=== PATIENT | male | born 1945 ===

== ENCOUNTER 2023-11-27 09:25 | Outpatient (RCR) | payer MEDICARE, MEDICAID, SELFPAY | END 2023-11-27 23:59 | disposition home or self-care (01) | LOC: RPT 09:25 | PROVIDERS: ATTENDING PHYSICIAN Radiology Radiation Oncology | DX: I89.0 Lymphedema, not elsewhere classified (principal); C01 Malignant neoplasm of base of tongue; Z73.6 Limitation of activities due to disability | CPT/HCPCS: 97110; 97162; 97535 ==

== ENCOUNTER 2023-12-24 13:31 | Outpatient (RCR) | payer MEDICARE, MEDICAID, SELFPAY | END 2023-12-24 23:59 | disposition home or self-care (01) | LOC: RPT 13:31 | PROVIDERS: ATTENDING PHYSICIAN Radiology Radiation Oncology | DX: C01 Malignant neoplasm of base of tongue (principal); I89.0 Lymphedema, not elsewhere classified; Z73.6 Limitation of activities due to disability; F03.90 Unspecified dementia, unspecified severity, without behavioral disturbance, psychotic disturbance, mood disturbance, and anxiety | CPT/HCPCS: 97110; 97140 ==

== ENCOUNTER 2024-01-14 11:27 | Outpatient (RCR) | payer MEDICARE, MEDICAID, SELFPAY | END 2024-01-14 23:59 | disposition home or self-care (01) | LOC: RPT 11:27 | PROVIDERS: ATTENDING PHYSICIAN Radiology Radiation Oncology | DX: I89.0 Lymphedema, not elsewhere classified (principal); C01 Malignant neoplasm of base of tongue; Z73.6 Limitation of activities due to disability | CPT/HCPCS: 97110; 97140 ==

== ENCOUNTER 2024-01-29 10:44 | Outpatient (RCR) | payer MEDICARE, MEDICAID, SELFPAY | END 2024-01-29 13:47 | disposition home or self-care (01) | LOC: RPT 10:44 | PROVIDERS: ATTENDING PHYSICIAN Radiology Radiation Oncology | DX: C01 Malignant neoplasm of base of tongue (principal); I89.0 Lymphedema, not elsewhere classified; Z73.6 Limitation of activities due to disability | CPT/HCPCS: 97140; 97535 ==

== ENCOUNTER → 2024-04-06 17:30 | Outpatient (REF) | payer MEDICARE, MEDICAID, SELFPAY ==
[2024-04-09 04:28] LABS: HPV, High Risk Not Detected; HPV, High Risk Source Anal
== END ==
LOC: REG 17:30
PROVIDERS: ATTENDING PHYSICIAN Surgery
DX: Z86.19 Personal history of other infectious and parasitic diseases (principal)
CPT/HCPCS: 87624; 88112

== ENCOUNTER → 2024-06-22 10:40 | Outpatient (REF) | payer MEDICARE, MEDICAID, SELFPAY | LOC: MRI 3T 10:40 | PROVIDERS: ATTENDING PHYSICIAN Radiology Radiation Oncology; FAMILY PHYSICIAN Internal Medicine | DX: N40.2 Nodular prostate without lower urinary tract symptoms (principal) | CPT/HCPCS: 72197; A9575 ==

== ENCOUNTER → 2024-07-24 11:17 | Outpatient (REF) | payer MEDICARE, MEDICAID, SELFPAY | LOC: CLAB 11:17 | PROVIDERS: ATTENDING PHYSICIAN Surgery | DX: D49.59 Neoplasm of unspecified behavior of other genitourinary organ (principal) | CPT/HCPCS: 88305 ==

== ENCOUNTER 2024-09-21 22:03 | Inpatient (IN) | payer MEDICARE, OTHER, SELFPAY ==
--- NOTE | 2024-09-21 15:02 | ED.GENMED ---
ED Provider Triage
<Sahra Woodruff SPEECH TEACHER - Last Filed: 09/28/24 18:28>
-
Patient seen by provider in Triage?: Seen in Triage
Attestation: A medical screening examination has been initiated by a qualified medical provider. Based on the assessment performed at this time, it has been determined that an emergent medical condition may exist and the patient has been informed
that further medical evaluation and possible additional diagnostic testing may be needed.
HPI: 79 yo male here with daughter who states pt normally walks, sometimes with walker, when she saw him today for first time in two weeks, she found out from [place] that pt has been needing wheelchair transport past 2 weeks, very lethargic, out of it,
says he still has a sore throat.
2 weeks ago he had bowel clean-out for prostate CA, [facility] radiation doing trial run prior to starting radiation. Last week had covid shot, sore throat afterward, 3 days later appt with [facility] (hx head and neck CA for routing f/u). Cancelled appt. as
pt didn't feel well
Had first Lupron shot one month ago, due again today w Dr. Mehta but they want to hold off until evaluated
When pt asked if he knows why he's here states 'not really.' Pt states 'no' when asked if he has any pain, CP, SOB, abd.pain, extremity pain
GENERAL: Alert , in no apparent distress
EYE: No visual abnormalities.
NECK: Trachea midline
ENT: No visible abnormalities. Pharynx normal.
LUNGS: No acute respiratory distress
NEUROLOGICAL: Alert and oriented to name, '[facility]' states it's 'February,' next holiday is '.'
SKIN: Skin intact. No visible changes.
MUSCULOSKELETAL: Feet swollen
PSYCH: Normal and appropriate interaction.
This is a medical evaluation conducted in person to initiate diagnostic evaluation and provide initial therapeutics. Please see further documentation by the treating clinician.
Do you know why your here? Not completely.
History of Present Illness
<Sahra Woodruff, SPEECH TEACHER - Last Filed: 09/28/24 18:28>
General
Chief Complaint: Change in Mental Status
Time Seen by Provider: 09/21/24 16:21
<Eduarda Posey DO - Last Filed: 09/21/24 18:46>
History of Present Illness
History of Present Illness:
79-year-old male with prior history of head and neck cancer remission, prostate cancer, bipolar disorder, diabetes presenting to the emergency department for generalized fatigue and weakness. Patient's daughter has not seen her for 2 weeks. She
went to go visit her today at the nursing facility, patient seemed very fatigued and sleepy. Notes that the correction has been wheeling him to meals, which is unlike him. She was supposed to get him to get his Lupron shot for prostate cancer
today, however in discussion with the oncologist, advised not to given his present state. No known fevers. Patient denying any chest pain or difficulty breathing. He does note some sore throat and a mild cough. Patient had his COVID-vaccine
about a week ago and reports that he has been feeling unwell since then. Daughter notes overall poor appetite. No known sick contacts. No additional history obtained at this time.
Phy Exam
<Eduarda Posey DO - Last Filed: 09/21/24 18:46>
Physical Exam
Physical Exam:
General: Somnolent however responsive, pale
HEENT: protecting airway, no oropharyngeal erythema, no exudates
Neck: appears supple
CV: Normal heart rate, regular rhythm
Resp: No accessory muscle use, no increased work of breathing, lungs clear to auscultation bilaterally
Abd: Soft and non-distended, no tenderness to palpation
Extremities: No deformities, no erythema. Generalized swelling to the distal upper and lower extremities
Neuro: alert, no focal neurologic deficit
: deferred
Rectal: deferred
Psych: Normal affect
Skin: Intact
Course
<Sahra Woodruff, SPEECH TEACHER - Last Filed: 09/28/24 18:28>
Orders/Labs/Results
Orders:
Orders
09/21/24 15:17
Complete Blood Count/With Diff Urgent
Comprehensive Metabolic Panel Urgent
Free T4 Urgent
NT-proBNP Urgent
Comment: ADD ON
Serum Osmolality Urgent
Comment: ADD ON
TSH Reflex To Free T4 Urgent
Comment: ADD ON
09/21/24 16:34
0.9% Sodium Chloride 1000 ml [Nss] 1,000 ml IV BOLUS
09/21/24 16:35
CR Chest - 2 Views Urgent
Comment:
Reason For Exam: fatigue
09/21/24 16:51
COVID-19 Antigen Urgent
Source: Nasal Swab
Lactic Acid Q4H
Comment: CANCEL 2nd LACTIC ACID IF 1st LACTIC ACID IS LESS THAN 2
Osmolality, Random Urine Urgent
Date Specimen was Collected: 09/21/24
Time Specimen was Collected: 15:20
Comment: ADD ON
Urinalysis Reflex To Culture Urgent
Date Specimen was Collected: 09/21/24
Time Specimen was Collected: 15:20
Urine Microscopic Reflex Cult Urgent
Urine Sodium Urgent
Date Specimen was Collected: 09/21/24
Time Specimen was Collected: 15:20
Comment: ADD ON
Influenza A+B Rapid Molecular Urgent
MANOJ Source: Nasal Swab
Specimen Description:
Rapid Strep Group A Urgent
MANOJ Source: Throat/Pharynx
Specimen Description:
Date Specimen was Collected: 09/21/24
Time Specimen was Collected: 16:47
Urine Culture Urgent
MANOJ Source: U
Specimen Description:
Date Specimen was Collected: 09/21/24
Time Specimen was Collected: 15:20
09/21/24 20:12
Add On- LAB Urgent
Tests Added?: serum osmo, TSH w/Reflex
09/21/24 20:44
Peripheral Venous Lwr Ext Bilat US [US Periph Venous LOWER Ext Jacob] Urgent
Comment:
Reason For Exam: lower extremity edema
09/21/24 20:51
Add On- LAB Urgent
Tests Added?: urine osmolality, urine sodium
09/21/24 20:52
Add On- LAB Urgent
Tests Added?: BNP
09/21/24 20:54
3% Sodium Chloride 250 ml [Sodium Chloride 3%] 250 ml IV ONCE
09/21/24 21:03
Admit/Transfer Patient As Directed
Co-Sign Provider:
Level of Care: Inpatient admission
Assign to:: Telemetry
Physician / Group: Ethel
Diagnosis: Symptomatic Hyponatremia
Reason for Telemetry: Arrhythmia
Date to Stop Telemetry: 09/24/24
Time to Stop Telemetry: 11:00
Reason for Hospitalization: IVFs
Expected length of stay greater than two midnights?: Yes
ELOS- Estimated Length of Stay in days: 3
I certify the patient meets the requirements for IP care: Yes
09/21/24 21:04
PRN Pain Medication Management As Directed
May give lesser potent ordered pain med per pt: Yes
preference::
Protocol:: Medication orders for pain may be administered in a
manner that supports deferring to patient preference
when the pt is:
- Requesting an ordered lesser potent pain medication.
Least to most potent pain medications are defined
as: acetaminophen < NSAID < tramadol < opioids
(morphine, oxycodone, hydromorphone).
- Requesting a lesser dose of the same medication IF
ORDERED.
- Requesting a less intrusive route of administration
if both routes are prescribed by the provider (PO <
IV).
09/21/24 21:05
Code Status As Directed
Resuscitation Status: Do not resuscitate
Reached after discussion with pt or family/Healthcare POA: Yes
09/21/24 21:06
DNR Bracelet Application ONCE
09/21/24 22:00
Flush (0.9% Sodium Chloride) [Flush (Nss)] See Dose Instructions IV PER PROTOCOL
09/22/24 00:48
Acetaminophen [Tylenol] 650 mg PO Q6HPRN PRN
Dextrose 50%-Water [Dextrose 50% Syringe] 12.5 grams IV [id number] PRN
Glucagon [GlucaGen] 1 mg IM PRN PRN
HydrALAZINE [Apresoline] 5 mg IV Q6HPRN PRN
09/22/24 00:48
Echo 2D MMode Color/Doppler Routine
Reason for Study: Lower extremity edema
NEPHROLOGY CONSULT Routine
Consulting Provider: Rod Espinal V.
Was physician already notified: Yes
Activity As Directed
Activity Level: Out of Bed- Chair
Bedside Glucose Monitoring As Directed
Frequency: AC&HS
Additional Instructions:: Change to q6h if pt on TPN, tube feeding or not eating
I&O [Intake/ Output] As Directed
Frequency: q12h
Vital Signs As Directed
Frequency: Per unit guidelines
Weight As Directed
Frequency: Daily
Ot Eval And Treat Routine
Pt Eval And Treat Routine
Activity Level: Out of Bed-Early Mobility
DX Deep Vein Thrombosis Video Routine
09/22/24 04:43
Basic Metabolic Panel IN AM
Complete Blood Count/No Diff IN AM
Cortisol, Random IN AM
Glycohemoglobin (HgbA1c) IN AM
Magnesium IN AM
09/22/24 Breakfast
Sodium, 2 Gram
At Your Request: Non-Participating
Fluid Restriction: 1440 mL/day (48 oz)
Low Sodium: 2000 trevor/ 17 CHO Diabetic
Potassium, 2 Gram
09/22/24 07:30
Insulin Aspart Corrective Mod [Novolog Flexpen-Moderate Resistance] See Protocol SC AC
09/22/24 08:00
Docusate Sodium [Colace] 100 mg PO BID
Duloxetine Delayed Release [Cymbalta Delayed Release] 20 mg PO DAILY
Duloxetine Delayed Release [Cymbalta Delayed Release] 60 mg PO DAILY
Memantine HCl [Namenda] 5 mg PO BID
Tamsulosin [Flomax] 0.4 mg PO DAILY
cariprazine [Vraylar] See Dose Instructions PO DAILY
09/22/24 18:00
Enoxaparin Sodium [Lovenox] 40 mg SC QPM
09/24/24 11:00
DC Protocol for Telemetry ONCE
Abnormal Lab Results
09/21/24 09/21/24
15:17 16:51
WBC 12.2 H 10^3/uL
(4.8-10.8)
Hct 38.9 L %
(39.0-52.0)
RDW 14.7 H %
(11.5-14.5)
Plt Count 526 H 10^3/uL
(130-400)
Abs Immat Gran (auto) 0.2 H 10^3/uL
(0-0.05)
Absolute Neuts (auto) 9.7 H 10^3/uL
(1.4-6.5)
Absolute Lymphs (auto) 0.8 L 10^3/uL
(1.2-3.4)
Absolute Eos (auto) 1.1 H 10^3/uL
(0-0.7)
Immature Gran % 1.8 H %
(0-0.5)
Neutrophils % 79.8 H %
(42.2-75.2)
Lymphocytes % 6.3 L %
(20.5-51.1)
Eosinophils % 9.3 H %
(0-6)
Sodium 123 L mmol/L
(135-145)
Potassium 5.3 H mmol/L
(3.5-5.1)
Chloride 96 L mmol/L
(98-107)
Carbon Dioxide 18 L mmol/L
(22-30)
BUN 41 H mg/dl
(9-20)
Glucose 181 H mg/dl
(70-99)
Serum Osmolality 274 L mOsm/kg
(275-300)
Alkaline Phosphatase 35 L U/L
(38-126)
Total Protein 5.2 L g/dl
(6.3-8.2)
Albumin 2.5 L g/dl
(3.5-5.0)
TSH (Reflex) 4.84 H uIU/ml
(0.47-4.68)
Ur Occult Blood Reflex 4+ A
(Negative)
Leukocyte Esterase Rfl 1+ A
(Negative)
Urine RBC 50-60 A /HPF
(0-2)
Urine WBC (Reflex) 21-25 A /HPF
(0-5)
Urine Bacteria (Reflex) Few A
(Negative)
Urine Glucose Trace A
(Negative)
09/21/24 15:17
09/21/24 15:17
Vital Signs
Initial and Last Documented VS:
Initial Vital Signs
Temp Pulse Resp BP Pulse Ox
98.5 F 91 16 125/67 98
09/21/24 15:03 09/21/24 15:03 09/21/24 15:03 09/21/24 15:03 09/21/24 15:03
Last Documented Vital Signs
Temp Pulse Resp BP Pulse Ox
97.4 F 96 18 117/58 97
09/24/24 15:45 09/24/24 15:45 09/24/24 15:45 09/24/24 15:45 09/24/24 15:45
<Eduarda Taty, DO - Last Filed: 09/21/24 18:46>
Orders/Labs/Results
Orders:
Orders
09/21/24 15:17
Complete Blood Count/With Diff Urgent
Comprehensive Metabolic Panel Urgent
Free T4 Urgent
NT-proBNP Urgent
Comment: ADD ON
Serum Osmolality Urgent
Comment: ADD ON
TSH Reflex To Free T4 Urgent
Comment: ADD ON
09/21/24 16:34
0.9% Sodium Chloride 1000 ml [Nss] 1,000 ml IV BOLUS
09/21/24 16:35
CR Chest - 2 Views Urgent
Comment:
Reason For Exam: fatigue
09/21/24 16:51
COVID-19 Antigen Urgent
Source: Nasal Swab
Lactic Acid Q4H
Comment: CANCEL 2nd LACTIC ACID IF 1st LACTIC ACID IS LESS THAN 2
Osmolality, Random Urine Urgent
Date Specimen was Collected: 09/21/24
Time Specimen was Collected: 15:20
Comment: ADD ON
Urinalysis Reflex To Culture Urgent
Date Specimen was Collected: 09/21/24
Time Specimen was Collected: 15:20
Urine Microscopic Reflex Cult Urgent
Urine Sodium Urgent
Date Specimen was Collected: 09/21/24
Time Specimen was Collected: 15:20
Comment: ADD ON
Influenza A+B Rapid Molecular Urgent
MANOJ Source: Nasal Swab
Specimen Description:
Rapid Strep Group A Urgent
MANOJ Source: Throat/Pharynx
Specimen Description:
Date Specimen was Collected: 09/21/24
Time Specimen was Collected: 16:47
Urine Culture Urgent
MANOJ Source: U
Specimen Description:
Date Specimen was Collected: 09/21/24
Time Specimen was Collected: 15:20
09/21/24 20:12
Add On- LAB Urgent
Tests Added?: serum osmo, TSH w/Reflex
09/21/24 20:44
Peripheral Venous Lwr Ext Bilat US [US Periph Venous LOWER Ext Jacob] Urgent
Comment:
Reason For Exam: lower extremity edema
09/21/24 20:51
Add On- LAB Urgent
Tests Added?: urine osmolality, urine sodium
09/21/24 20:52
Add On- LAB Urgent
Tests Added?: BNP
09/21/24 20:54
3% Sodium Chloride 250 ml [Sodium Chloride 3%] 250 ml IV ONCE
09/21/24 21:03
Admit/Transfer Patient As Directed
Co-Sign Provider:
Level of Care: Inpatient admission
Assign to:: Telemetry
Physician / Group: Ethel
Diagnosis: Symptomatic Hyponatremia
Reason for Telemetry: Arrhythmia
Date to Stop Telemetry: 09/24/24
Time to Stop Telemetry: 11:00
Reason for Hospitalization: IVFs
Expected length of stay greater than two midnights?: Yes
ELOS- Estimated Length of Stay in days: 3
I certify the patient meets the requirements for IP care: Yes
09/21/24 21:04
PRN Pain Medication Management As Directed
May give lesser potent ordered pain med per pt: Yes
preference::
Protocol:: Medication orders for pain may be administered in a
manner that supports deferring to patient preference
when the pt is:
- Requesting an ordered lesser potent pain medication.
Least to most potent pain medications are defined
as: acetaminophen < NSAID < tramadol < opioids
(morphine, oxycodone, hydromorphone).
- Requesting a lesser dose of the same medication IF
ORDERED.
- Requesting a less intrusive route of administration
if both routes are prescribed by the provider (PO <
IV).
09/21/24 21:05
Code Status As Directed
Resuscitation Status: Do not resuscitate
Reached after discussion with pt or family/Healthcare POA: Yes
09/21/24 21:06
DNR Bracelet Application ONCE
09/21/24 22:00
Flush (0.9% Sodium Chloride) [Flush (Nss)] See Dose Instructions IV PER PROTOCOL
09/22/24 00:48
Acetaminophen [Tylenol] 650 mg PO Q6HPRN PRN
Dextrose 50%-Water [Dextrose 50% Syringe] 12.5 grams IV [id number] PRN
Glucagon [GlucaGen] 1 mg IM PRN PRN
HydrALAZINE [Apresoline] 5 mg IV Q6HPRN PRN
09/22/24 00:48
Echo 2D MMode Color/Doppler Routine
Reason for Study: Lower extremity edema
NEPHROLOGY CONSULT Routine
Consulting Provider: Rod Espinal V.
Was physician already notified: Yes
Activity As Directed
Activity Level: Out of Bed- Chair
Bedside Glucose Monitoring As Directed
Frequency: AC&HS
Additional Instructions:: Change to q6h if pt on TPN, tube feeding or not eating
I&O [Intake/ Output] As Directed
Frequency: q12h
Vital Signs As Directed
Frequency: Per unit guidelines
Weight As Directed
Frequency: Daily
Ot Eval And Treat Routine
Pt Eval And Treat Routine
Activity Level: Out of Bed-Early Mobility
DX Deep Vein Thrombosis Video Routine
09/22/24 04:43
Basic Metabolic Panel IN AM
Complete Blood Count/No Diff IN AM
Cortisol, Random IN AM
Glycohemoglobin (HgbA1c) IN AM
Magnesium IN AM
09/22/24 Breakfast
Sodium, 2 Gram
At Your Request: Non-Participating
Fluid Restriction: 1440 mL/day (48 oz)
Low Sodium: 2000 trevor/ 17 CHO Diabetic
Potassium, 2 Gram
09/22/24 07:30
Insulin Aspart Corrective Mod [Novolog Flexpen-Moderate Resistance] See Protocol SC AC
09/22/24 08:00
Docusate Sodium [Colace] 100 mg PO BID
Duloxetine Delayed Release [Cymbalta Delayed Release] 20 mg PO DAILY
Duloxetine Delayed Release [Cymbalta Delayed Release] 60 mg PO DAILY
Memantine HCl [Namenda] 5 mg PO BID
Tamsulosin [Flomax] 0.4 mg PO DAILY
cariprazine [Vraylar] See Dose Instructions PO DAILY
09/22/24 18:00
Enoxaparin Sodium [Lovenox] 40 mg SC QPM
09/24/24 11:00
DC Protocol for Telemetry ONCE
Abnormal Lab Results
09/21/24 09/21/24
15:17 16:51
WBC 12.2 H 10^3/uL
(4.8-10.8)
Hct 38.9 L %
(39.0-52.0)
RDW 14.7 H %
(11.5-14.5)
Plt Count 526 H 10^3/uL
(130-400)
Abs Immat Gran (auto) 0.2 H 10^3/uL
(0-0.05)
Absolute Neuts (auto) 9.7 H 10^3/uL
(1.4-6.5)
Absolute Lymphs (auto) 0.8 L 10^3/uL
(1.2-3.4)
Absolute Eos (auto) 1.1 H 10^3/uL
(0-0.7)
Immature Gran % 1.8 H %
(0-0.5)
Neutrophils % 79.8 H %
(42.2-75.2)
Lymphocytes % 6.3 L %
(20.5-51.1)
Eosinophils % 9.3 H %
(0-6)
Sodium 123 L mmol/L
(135-145)
Potassium 5.3 H mmol/L
(3.5-5.1)
Chloride 96 L mmol/L
(98-107)
Carbon Dioxide 18 L mmol/L
(22-30)
BUN 41 H mg/dl
(9-20)
Glucose 181 H mg/dl
(70-99)
Serum Osmolality 274 L mOsm/kg
(275-300)
Alkaline Phosphatase 35 L U/L
(38-126)
Total Protein 5.2 L g/dl
(6.3-8.2)
Albumin 2.5 L g/dl
(3.5-5.0)
TSH (Reflex) 4.84 H uIU/ml
(0.47-4.68)
Ur Occult Blood Reflex 4+ A
(Negative)
Leukocyte Esterase Rfl 1+ A
(Negative)
Urine RBC 50-60 A /HPF
(0-2)
Urine WBC (Reflex) 21-25 A /HPF
(0-5)
Urine Bacteria (Reflex) Few A
(Negative)
Urine Glucose Trace A
(Negative)
09/21/24 15:17
09/21/24 15:17
Vital Signs
Initial and Last Documented VS:
Initial Vital Signs
Temp Pulse Resp BP Pulse Ox
98.5 F 91 16 125/67 98
09/21/24 15:03 09/21/24 15:03 09/21/24 15:03 09/21/24 15:03 09/21/24 15:03
Last Documented Vital Signs
Temp Pulse Resp BP Pulse Ox
97.4 F 96 18 117/58 97
09/24/24 15:45 09/24/24 15:45 09/24/24 15:45 09/24/24 15:45 09/24/24 15:45
<Eduarda Posey DO - Last Filed: 09/21/24 18:46>
MDM/Problems Addressed
MDM/Problems Addressed:
79-year-old male with prior history of head and neck cancer remission, prostate cancer, bipolar disorder, diabetes presenting for generalized fatigue and weakness. Vital signs on arrival are normal.
On exam, patient is somnolent, however responsive. He is pale in appearance. Unremarkable cardiac, pulmonary, abdominal exam. Patient had screening laboratory analysis prior to my assessment, leukocytosis with hyponatremia. Concern for
dehydration and possible underlying infection as source of symptoms. Unclear source of infection, plan for chest x-ray, urinalysis, COVID/flu. Patient notes some throat pain, will also send strep swab. Will add lactic acid and start IV fluids.
Will require admission given hyponatremia
18:45 -viral swabs are negative. Strep swab negative. Chest x-ray without obvious infiltrate. Vitals otherwise remained stable. Difficulty obtaining urine sample, limited urine in the bladder. Will continue to hydrate plan for admission for
hyponatremia and fatigue/weakness
<Sahra Woodruff SPEECH TEACHER - Last Filed: 09/28/24 18:28>
*Critical Care Note
Total Time (30-74mins, 75-104mins- exclusive of procedures): Not Applicable
ED Attending Note
<Sahra Woodruff SPEECH TEACHER - Last Filed: 09/28/24 18:28>
-
Portions of this chart may have been created with voice recognition software.� Occasional wrong word or��sound alike� substitutions may have occurred due to the inherent limitations of voice recognition software.
Discharge Plan
Departure
Patient Disposition: Admit
Date of Disposition: 09/21/24
Time of Disposition: 19:33
Presentation/result/management discussed w/ accepting MD/DO: Hospitalist
Patient with high blood pressure during this ER visit?: No
Condition: Fair
Discharge Problem:
Acute hyponatremia, Fatigue
Interventions
Interventions:
*Risk Screen - Suicide Last Done: 09/21/24 15:03
*General Assessment Last Done: 09/21/24 23:30
*Neglect/Abuse Screening Last Done: 09/21/24 15:03
*ED COVID-19 Vaccine History Last Done: 09/21/24 23:30
*Nursing Disposition Last Done: 09/22/24 14:27
ED- Pulmonary Assessment Last Done: 09/21/24 16:11
ED- Neurological Assessment Last Done: 09/21/24 16:11
ED- Cardiac Assessment Last Done: 09/21/24 16:11
ED Swallowing Screen Last Done: 09/21/24 18:20
Discharge Date and Time
Discharge Date/Time: 09/22/24 14:28
[2024-09-21 15:03] VITALS: BP 125/67
[2024-09-21 15:29] LABS: % Basophils 0.2 % (0-2); % Eosinophils 9.3 % (0-6); % Immature Granulocytes 1.8 % (0-0.5); % Lymphocytes 6.3 % (20.5-51.1); % Monocytes 2.6 % (1.7-9.3); % Neutrophils 79.8 % (42.2-75.2); Absolute Eosinophils 1.1 10^3/uL (0-0.7); Absolute Immature Granulocytes 0.2 10^3/uL (0-0.05); Absolute Lymphocytes 0.8 10^3/uL (1.2-3.4); Absolute Monocytes 0.3 10^3/uL (0.1-0.6); Absolute Neutrophils 9.7 10^3/uL (1.4-6.5); Hematocrit 38.9 % (39.0-52.0); Hemoglobin 13.1 g/dL (13.0-18.0); Mean Corp Hgb Conc. 33.7 g/dL (33.0-37.0); Mean Platelet Volume 9.1 fL (7.4-10.4); Nucleated Red Blood Cells % 0 % (-); Platelet Count 526 10^3/uL (130-400); Red Blood Cell Count 4.86 10^6/uL (4.70-6.10); Red Cell Dist. Width 14.7 % (11.5-14.5); White Blood Cell Count 12.2 10^3/uL (4.8-10.8)
[2024-09-21 15:47] LABS: ALT (SGPT) 19 U/L (0-50); AST (SGOT) 25 U/L (17-59); Albumin 2.5 g/dl (3.5-5.0); Alkaline Phosphatase 35 U/L (38-126); Blood Urea Nitrogen 41 mg/dl (9-20); Calcium 8.5 mg/dl (8.4-10.2); Carbon Dioxide 18 mmol/L (22-30); Chloride 96 mmol/L (98-107); Glucose 181 mg/dl (70-99); Potassium 5.3 mmol/L (3.5-5.1); Sodium 123 mmol/L (135-145); Total Bilirubin 0.2 mg/dl (0.2-1.3); Total Protein 5.2 g/dl (6.3-8.2); eGFR > 60.00
[2024-09-21 15:56] VITALS: BMI 36.2
[2024-09-21 16:03] VITALS: BP 112/69
--- NOTE | 2024-09-21 16:39 | PHANOTE ---
Med Rec Note:
Called [facility], spoke with nursing supervisor polishing for medication list. Medication list sent over missing frequencies (some frequencies found by Dr Rg, just not time of day).
Tried to contact nursing supervisor polishing to clarify frequency of medications, no answer. Home med list left unconfirmed.
[2024-09-21] MEDS: NSS 1000 IV (16:53)
[2024-09-21 17:00] VITALS: BP 113/78
[2024-09-21 17:31] LABS: COVID-19 Antigen Negative (Negative)
[2024-09-21 19:13] VITALS: BP 138/74
[2024-09-21 20:37] LABS: Urine Albumin Negative (Neg - Trace); Urine Bilirubin Negative (Negative); Urine Character Clear (Clear); Urine Color Yellow; Urine Glucose Trace (Negative); Urine Ketone Negative (Negative); Urine Leukocyte 1+ (Negative); Urine Nitrite Negative (Negative); Urine Occult Blood 4+ (Negative); Urine Urobilinogen Negative (Neg - 1+)
[2024-09-21 20:43] LABS: Osmolality Serum 274 mOsm/kg (275-300)
--- NOTE | 2024-09-21 20:49 | HPS.HSE ---
Family Physician
-
Family Physician: NOT KNOW UNKNOWN - PT DOES
Chief Complaint
-
Weakness
History of Present Illness
Patient is a 79 /o male past medical history of Oropharyngeal Cancer, recently diagnosed Prostate Cancer, Diabetes Mellitus, Hypertension, Bipolar Disorder and Dementia who presents with weakness. Patient was brought in by his daughter for weakness.
At baseline patient ambulates independently around the nursing facility where he resides. Over the last week they have been using a wheelchair to take him back and forth to the [facility]. Daughter also noted his leg seem more edematous than usual
and his hands are puffy. Patient reports he just 'feels out of sorts' but is unable to more specific.
Medical History
Past Medical History
Past Medical History: Reports Other
Additional Past Medical History:
Prostate Cancer
Oropharyngeal Carcinoma s/p Chemotherapy and Radiation
COPD
Dementia
Bipolar Disorder
Diabetes Mellitus, Type II
Essential Hypertension
Past Surgical History: Reports Other
Additional Past Surgical History:
Partial Colectomy
Lingual Tonsil Resection
Carpal Tunnel Release
Elbow Surgery
PEG Tube Placement and Subsequent Removal
Social History
Tobacco: Former Smoker
Living: Prison
Family History
Family History: Not pertinent
Allergies / Home Medications
Allergies reflects when Allergies were last updated in [facility].
Home Medications with original date entered in [facility]
Allergy/Medication List:
Allergies
Allergy/AdvReac Type Severity Reaction Status Date / Time
morphine Allergy Unknown Verified 09/21/24 15:10
Home Medications
acetaminophen 325 mg tablet 650 mg PO Q6HPRN PRN mild pain/fever 09/21/24
bisacodyl 10 mg rectal suppository (Dulcolax (bisacodyl)) 10 mg HI DAILYPRN PRN if mom is ineffective 09/21/24
cariprazine 1.5 mg capsule (Vraylar) 1.5 mg PO DAILY 09/21/24
clotrimazole-betamethasone 1 %-0.05 % topical cream 1 applic topical b/l feet & ankles 09/21/24
docusate sodium 100 mg capsule 100 mg PO BID 09/21/24
dulaglutide 0.75 mg/0.5 mL subcutaneous pen injector (Trulicity) 0.75 mg SC WEEKLY 09/21/24
duloxetine 20 mg capsule,delayed release 20 mg PO DAILY 09/21/24
duloxetine 40 mg capsule,delayed release 40 mg PO DAILY 09/21/24
insulin glargine 100 unit/mL (3 mL) subcutaneous pen (Basaglar KwikPen U-100 Insulin) 15 unit SC HS 09/21/24
lisinopril 20 mg tablet 20 mg PO DAILY 09/21/24
magnesium hydroxide 400 mg/5 mL oral suspension (Milk of Magnesia) 30 ml PO DAILYPRN PRN if no bm x 2 days 09/21/24
memantine 5 mg tablet 5 mg PO BID 09/21/24
nystatin 100,000 unit/mL oral suspension 5 ml PO QID 09/21/24
sodium phosphates 19 gram-7 gram/118 mL enema (Fleet Enema) 118 ml HI DAILYPRN PRN if no bm x 3 days 09/21/24
tamsulosin 0.4 mg capsule 0.4 mg PO DAILY 09/21/24
Review of Systems
-
Unable to obtain full review of systems at this time due to: Dementia
Physical Exam
Vital Signs
Vital Signs
Temp Pulse Resp BP Pulse Ox
98.5 F 86 16 138/74 100
09/21/24 15:03 09/21/24 19:15 09/21/24 19:15 09/21/24 19:13 09/21/24 19:00
Physical Exam
General: Comfortable and Conversant
HEENT: NormoCephalic, Anicteric and Atraumatic
Respiratory: Clear and Non Labored Respirations
Cardiac: S1/S2 and Regular Rhythm
GI: Soft and Non Tender
Rectal: Deferred by Provider
Musculoskeletal: No Clubbing, No Cyanosis and Other (+3 pitting edema bilateral lower extremities; +1 edema bilateral hands)
Skin: Warm and Dry
Neuro: Awake, Alert and Nonfocal/grossly intact
Psych: Calm and Confused
Laboratory Results
-
09/21/24 15:17
09/21/24 15:17
Laboratory Results
Lactic Acid 2.0 mmol/L (0.7-2.0) 09/21/24 16:51
Total Bilirubin 0.2 mg/dl (0.2-1.3) 09/21/24 15:17
AST 25 U/L (17-59) 09/21/24 15:17
ALT 19 U/L (0-50) 09/21/24 15:17
Alkaline Phosphatase 35 U/L (38-126) L 09/21/24 15:17
Data Reviewed
-
Diagnostic Radiology: Report Reviewed by me
Lab Data: Labs Reviewed by me
Old Records: Reviewed
Impression/Plan
-
Symptomatic Hyponatremia
-Consult Nephrology
-Check urine sodium, urine osmo, and serum osmo
-Check TSH and Cortisol
-Give 250mL of 3% NaCl overnight
-Repeat sodium later this evening and in AM
-Continue fluid restriction
Bilateral Lower Extremity Edema
-Check Lower Extremity Doppler
-Check Echo
-Check BNP
Essential Hypertension
-Hold lisinopril due to hyperkalemia
-Add hydralazine prn
Diabetes Mellitus, Type II
-Patient maintained on Trulicity as outpatient
-Continue Basaglar
-Monitor sugars and continue coverage insulin
Prostate Cancer
-Patient recently started Lupron and is scheduled to start radiation next month
Bipolar Disorder
-Patient maintained on cariprazine as outpatient
-Continue duloxetine
Dementia
-Continue memantine
-Monitor for mood/behavior changes during hospitalization
Hx Oropharyngeal Carcinoma s/p Chemotherapy and Radiation
DVT proph: Lovenox
Code Status: DNR/DNI
[2024-09-21 21:00] LABS: Urine Bacteria Few (Negative); Urine Red Blood Cell 50-60 /HPF (0-2); Urine White Cell 21-25 /HPF (0-5)
[2024-09-21] MEDS: SODIUM CHLORIDE 3% 250 IV (21:10)
[2024-09-21 21:11] LABS: Osmolality Urine 754 mOsm/kg (300-900)
[2024-09-21 21:18] LABS: TSH Reflex To Free T4 4.84 uIU/ml (0.47-4.68)
--- NOTE | 2024-09-21 21:19 | W.PN.UPDATE ---
Update Note
Progress Note Update
Patient seen in conjunction with FREEDOM OF INFORMATION OFFICER. I agree with the findings on history and physical. I concur with the assessment and plan unless stated otherwise.
Briefly this is a 79-year-old with a recent diagnosis of prostate cancer now on Lupron, hypertension, diabetes, presenting to the emergency department with weakness fatigue and lethargy and found to have hyponatremia. Was being visited by daughter
today and he seemed very lethargic. He is being wheeled to his mail which is unusual for him. He did not get his Lupron today due to his ongoing weakness. Unclear duration of the symptoms but states seems to be since he is treatment began.
Patient denies any additional symptoms.
In the ED blood pressure was 138/74 pulse 86 he was at 90% on room air. He had a white count of 12.5 but the rest of the CBC was unremarkable. Sodium was 123 creatinine 0.9 and BUN 41. Bicarb was 18. His urine was very dark and he had to be
given IV fluids before he made any urine.
On exam he has bilateral lower extremity edema as well as mild upper extremity edema. There was no crackles. He had no calf swelling. There is no urinary retention.
A&P
Hyponatremia - likely explains weakness/ms changes. Patient seems to have total body overload but intravascularly dry. Urine Osm very high suggesting adh activity. Either SIADH or CHF or other volume avid states such as cirrhosis. No proteinuria
to suggest nephrotic state.
- admit to telemetry
- d/w nephrology, 30% sodium for now, repeat labs q 4 hours
- no additional iv fluids pending further studies
- will obtain tsh, cortisol, urine sodium
- orthostatic v/s
- i/o, allow fluid restricted diet
- bnp, echo, lf normal, consider RUQ u/s
- ramona LE u/s
- nephrology consulted as above
DM management per miner operator notes
DVT PPX - lovenox sq
Code status - DNR
[2024-09-21 21:23] LABS: Urine Sodium 55 mmol/L (30-90)
[2024-09-21 21:30] VITALS: BP 114/67
[2024-09-21 21:35] LABS: NT-proBNP 123 pg/ml
[2024-09-21 21:46] LABS: Free T4 1.38 ng/dl (0.78-2.19)
[2024-09-21 23:09] VITALS: BP 111/69
[2024-09-22] VITALS (9 sets, daily range): BP systolic 120–149; BP diastolic 58–79; PULSE 89–93; O2SAT 94; BMI 36.2
[2024-09-22 02:38] LABS: Glucose - Point of Care 141 mg/dl (70-99)
[2024-09-22] MEDS: LANTUS 0.15 UNITS SC ×2 (02:42→22:40)
[2024-09-22 03:31] LABS: Blood Urea Nitrogen 36 mg/dl (9-20); Calcium 7.9 mg/dl (8.4-10.2); Carbon Dioxide 20 mmol/L (22-30); Chloride 99 mmol/L (98-107); Estimated Creatinine Clearance 81 ml/min; Glucose 149 mg/dl (70-99); Potassium 5.2 mmol/L (3.5-5.1); Sodium 127 mmol/L (135-145); eGFR > 60.00
[2024-09-22 04:59] LABS: Hematocrit 37.7 % (39.0-52.0); Hemoglobin 12.7 g/dL (13.0-18.0); Mean Corp Hgb Conc. 33.7 g/dL (33.0-37.0); Mean Corpuscular Hgb 27.4 pg (27.0-31.0); Mean Corpuscular Volume 81.3 fL (80.0-94.0); Mean Platelet Volume 9.1 fL (7.4-10.4); Platelet Count 495 10^3/uL (130-400); Red Blood Cell Count 4.64 10^6/uL (4.70-6.10); Red Cell Dist. Width 14.9 % (11.5-14.5); White Blood Cell Count 12.4 10^3/uL (4.8-10.8)
[2024-09-22 05:26] LABS: Blood Urea Nitrogen 35 mg/dl (9-20); Calcium 7.9 mg/dl (8.4-10.2); Carbon Dioxide 18 mmol/L (22-30); Chloride 101 mmol/L (98-107); Estimated Creatinine Clearance 81 ml/min; Glucose 160 mg/dl (70-99); Magnesium 1.7 mg/dl (1.6-2.3); Potassium 5.2 mmol/L (3.5-5.1); Sodium 126 mmol/L (135-145); eGFR > 60.00
[2024-09-22 05:55] LABS: Cortisol, Random 13.5 ug/dl
[2024-09-22 08:17] LABS: Glucose - Point of Care 171 mg/dl (70-99)
[2024-09-22] MEDS: NAMENDA 5 MG PO ×2 (08:23→20:36)
[2024-09-22] MEDS: COLACE 100 MG PO ×2 (08:23→20:36)
[2024-09-22] MEDS: CYMBALTA DELAYED RELEASE 60 MG PO (08:23)
[2024-09-22] MEDS: FLOMAX 0.4 MG PO (08:23)
--- NOTE | 2024-09-22 08:23 | PHANOTE ---
med rec note- [facility] spoke to Aleja on c2 floor there. she going to fax over med list with direction.
[2024-09-22] MEDS: NOVOLOG FLEXPEN-MODERATE RESISTANCE 1 UNITS SC ×2 (08:34→17:11)
[2024-09-22 09:11] LABS: Glycohemoglobin (HgbA1c) 9.4 % (4.0-5.6)
[2024-09-22 11:21] LABS: Blood Urea Nitrogen 32 mg/dl (9-20); Calcium 7.9 mg/dl (8.4-10.2); Carbon Dioxide 21 mmol/L (22-30); Chloride 99 mmol/L (98-107); Estimated Creatinine Clearance 91 ml/min; Glucose 221 mg/dl (70-99); Potassium 5.1 mmol/L (3.5-5.1); Sodium 124 mmol/L (135-145); eGFR > 60.00
[2024-09-22] MEDS: NOVOLOG FLEXPEN-MODERATE RESISTANCE 3 UNITS SC (11:35)
--- NOTE | 2024-09-22 14:26 | W.CON.NEPH ---
Consultation
-
Date/Time Consultation Requested: 09/21/2024 7:30 PM
Date/Time Consultation Performed: 09/22/2024 2:30 PM
Requesting Provider: Dr. Rangel
Performing Provider: Dr. Espinal
Reason for Consultation: Hyponatremia
Medical History
-
Chief Complaint: Hyponatremia
History of Present Illness:
The patient is a 79-year-old male with a past medical history of depression maintained on Cymbalta therapy. He also has a history of gout maintained on allopurinol as well as diabetes for which he is maintained on insulin, Trulicity , metformin ,
and glipizide. His hypertension remains controlled on lisinopril. He has a history of oropharyngeal cancer and recently diagnosed prostate cancer. He also has a history of bipolar disease. He does have dementia. He presented with weakness he
also had significant increasing lower extremity edema. He has also had some noted mental status changes per family. When he presented to the hospital his sodium was depressed to 123 and nephrology was consulted. Last evening he was given
hypertonic saline for 250 cc at the direction of nephrology. Nephrology was consulted for his hyponatremia management. 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 proBNP 123 .
Past Medical History
Prostate Cancer
Oropharyngeal Carcinoma s/p Chemotherapy and Radiation
COPD
Dementia
Bipolar Disorder
Diabetes Mellitus, Type II
Essential Hypertension
Past Surgical History: Reports Other
Additional Past Surgical History:
Partial Colectomy
Lingual Tonsil Resection
Carpal Tunnel Release
Elbow Surgery
PEG Tube Placement and Subsequent Removal
Social History
Tobacco: Former Smoker
Living: Long Term
Family History
no ckd
Allergies / Home Medications
Allergy/AdvReac Type Severity Reaction Status Date / Time
morphine Allergy Unknown Verified 09/21/24 15:10
�Medication �Instructions �Recorded �Confirmed �Type
acetaminophen 325 mg tablet 650 mg PO Q6HPRN PRN mild 09/21/24 09/22/24 History
pain/fever
bisacodyl 10 mg rectal suppository 10 mg WV DAILYPRN PRN if no bm by 09/21/24 09/22/24 History
(Dulcolax (bisacodyl)) 2nd day & if no bm aftr mom
cariprazine 1.5 mg capsule 1.5 mg PO DAILY 09/21/24 09/22/24 History
(Vraylar)
docusate sodium 100 mg capsule 100 mg PO BID 09/21/24 09/22/24 History
dulaglutide 0.75 mg/0.5 mL 0.75 mg SC TU 09/21/24 09/22/24 History
subcutaneous pen injector
(Trulicity)
duloxetine 20 mg capsule,delayed 60 mg PO DAILY 09/21/24 09/22/24 History
release
insulin glargine 100 unit/mL (3 15 unit SC HS 09/21/24 09/22/24 History
mL) subcutaneous pen (Basaglar
KwikPen U-100 Insulin)
lisinopril 20 mg tablet 20 mg PO DAILY 09/21/24 09/22/24 History
magnesium hydroxide 400 mg/5 mL 30 ml PO DAILYPRN PRN if no bm x 2 09/21/24 09/22/24 History
oral suspension (Milk of Magnesia) days
memantine 5 mg tablet 5 mg PO BID 09/21/24 09/22/24 History
nystatin 100,000 unit/mL oral 5 ml PO QID 09/21/24 09/22/24 History
suspension
sodium phosphates 19 gram-7 118 ml WV DAILYPRN PRN if no bm x 09/21/24 09/22/24 History
gram/118 mL enema (Fleet Enema) 3 days
tamsulosin 0.4 mg capsule 0.4 mg PO HS 09/21/24 09/22/24 History
allopurinol 300 mg tablet 300 mg PO DAILY 09/22/24 09/22/24 History
cholecalciferol (vitamin D3) 50 50 mcg PO DAILY 09/22/24 09/22/24 History
mcg (2,000 unit) tablet (Vitamin
D3)
clotrimazole-betamethasone 1 1 applic topical BID b/l feet and 09/22/24 09/22/24 History
%-0.05 % topical cream ankles
cyanocobalamin (vitamin B-12) 1,000 mcg PO DAILY 09/22/24 09/22/24 History
1,000 mcg tablet
fenofibrate nanocrystallized 145 145 mg PO HS 09/22/24 09/22/24 History
mg tablet
ferrous sulfate 325 mg (65 mg 325 mg PO DAILY 09/22/24 09/22/24 History
iron) tablet
glipizide 10 mg tablet 10 mg PO DAILY 09/22/24 09/22/24 History
icosapent ethyl 1 gram capsule 2 g PO BID 09/22/24 09/22/24 History
(Vascepa)
melatonin 10 mg tablet,extended 10 mg PO HSPRN PRN sleep 09/22/24 09/22/24 History
release
metformin 1,000 mg tablet 1,000 mg PO BID 09/22/24 09/22/24 History
mirtazapine 15 mg tablet 15 mg PO HS 09/22/24 09/22/24 History
ondansetron HCl 8 mg tablet 8 mg PO Q8HPRN PRN nausea 09/22/24 09/22/24 History
oxcarbazepine 300 mg tablet 300 mg PO DAILY 09/22/24 09/22/24 History
polyethylene glycol 3350 17 gram 17 g PO DAILY 09/22/24 09/22/24 History
oral powder packet (Miralax)
sennosides 8.6 mg-docusate sodium 2 tab-cap PO DAILYPRN PRN if no bm 09/22/24 09/22/24 History
50 mg tablet (Senna Plus) aftr dulcolax
simvastatin 10 mg tablet (Zocor) 10 mg PO HS 09/22/24 09/22/24 History
trazodone 50 mg tablet 50 mg PO HS 09/22/24 09/22/24 History
Review of Systems
-
History Source: Patient
All other systems: Negative unless noted
Constitutional: Fatigue (weakness)
Musculoskeletal: Edema
Neurological: Other (mental status changes)
Physical Exam
Vital Signs
Vital Signs
Temp Pulse Resp BP Pulse Ox
97.8 F 94 15 131/59 98
09/22/24 11:16 09/22/24 11:01 09/22/24 11:01 09/22/24 11:01 09/22/24 11:16
Lab Results
09/22/24 04:43
09/22/24 11:01
WBC 12.4 10^3/uL (4.8-10.8) H 09/22/24 04:43
RBC 4.64 10^6/uL (4.70-6.10) L 09/22/24 04:43
Hgb 12.7 g/dL (13.0-18.0) L 09/22/24 04:43
Hct 37.7 % (39.0-52.0) L 09/22/24 04:43
Plt Count 495 10^3/uL (130-400) H 09/22/24 04:43
Sodium 124 mmol/L (135-145) L 09/22/24 11:01
Potassium 5.1 mmol/L (3.5-5.1) 09/22/24 11:01
Chloride 99 mmol/L (98-107) 09/22/24 11:01
Carbon Dioxide 21 mmol/L (22-30) L 09/22/24 11:01
BUN 32 mg/dl (9-20) H 09/22/24 11:01
Creatinine 0.8 mg/dL (0.7-1.3) 09/22/24 11:01
eGFR > 60.00 09/22/24 11:01
Glucose 221 mg/dl (70-99) H 09/22/24 11:01
Calcium 7.9 mg/dl (8.4-10.2) L 09/22/24 11:01
Xti-Y-Atlazndbubi Pept 123 pg/ml 09/21/24 15:17
Albumin 2.5 g/dl (3.5-5.0) L 09/21/24 15:17
Physical Exam
General: AOx3, Nontoxic , NAD
HEENT: PERRL, EOMI, Anicteric, Conjunctivae Clear, Ear/Nose Intact, Hearing Normal, Oropharynx Clear/dry, Dentition Intact, Facial Symmetry, Neck Supple, Neck: Trachea Midline, No JVD and No Thyromegaly, no Bruits
Respiratory: Clear to auscultation bilaterally with normal lung excursion
Cardiac: S1/S2 and Regular Rate/Rhythm
Breast: Deferred by me
Abdomen: Soft, Nontender, Nondistended, Normal Bowel Sounds and No Hepatosplenomegaly
Rectal: Deferred by Provider
Genito-urinary: No Costovertebral Tenderness
Extremities: No Clubbing, No Cyanosis and Noted + 1 edema
Skin: No Rash or open lesions
Neuro: Nonfocal/Grossly Intact, CN II-XII (Intact) and Strength (Musculoskeletal exam 5 out of 5 both upper and lower extremities)
Hematologic/Lymphatic: No Cervical Lymphadenopathy, No Submandibular Lymphadenopathy and No Supraclavicular Lymphadenopathy
Psych: Mood/afflect flat , Insight/judgement poor
Vascular: plus 2 pedal and radial pulses
Data Reviewed
-
Radiology: Image Personally Visualized and interpreted (Chest x-ray personally reviewed no active cardiopulmonary disease by my personal review)
Labs: Labs Reviewed by me (BMP TSH urine osmolality)
Old Records: Reviewed (Reviewed previous lab work in the electronic medical record from February 25, 2023 sodium 140)
Assessment/Plan
-
Impression:
Symptomatic hyponatremia (weakness/mental status changes)
Bilateral lower extremity edema
Hypoalbuminemia
Hypertension
Diabetes
Dementia/bipolar
Prostate cancer
Oropharyngeal cancer status postchemotherapy and radiation
Plan:
Hyponatremia is likely a function unfortunately of underlying malignancy with SIADH
-Maintain fluid restriction but will adjust
-Would titrate back Cymbalta as this is likely also potentiating hyponatremia
-Will give 15 mg p.o. Samsca times one
-Corrected hyponatremia in setting of hyperglycemia is 126
-Thyroid function test reviewed
-Echocardiogram without abnormalities and proBNP only 123
-Profound edema could be due to underlying hypoalbuminemia, urinalysis without albuminuria and therefore not due to underlying nephrotic process
-No evidence of venous obstruction by lower extremity duplex
--- NOTE | 2024-09-22 15:17 | W.PN.HOSP.TC ---
Today's Communication/Plan
-
see plan above
Assessment / Plan
Assessment / Plan
Symptomatic Hyponatremia
-Consulted Nephrology
-s/p 250mL of 3% NaCl overnight
-Repeat sodium still low at 124
-Continue fluid restriction
Bilateral Lower Extremity Edema
- Lower Extremity Doppler neg for DVT
- Echo pending
- BNP 123
- Unclear if dependent.
- Urine albumin neg.
Essential Hypertension
-Hold lisinopril due to hyperkalemia
-cw hydralazine prn
Diabetes Mellitus, Type II
- HbA1c 9.4
-Patient maintained on Trulicity as outpatient
-Continue Basaglar
-Monitor sugars and continue coverage insulin
Prostate Cancer
-Patient recently started Lupron and is scheduled to start radiation next month
Bipolar Disorder
-Patient maintained on cariprazine as outpatient
-Continue duloxetine
- No new changes per daughter at bedside
Dementia
-Continue memantine
-Monitor for mood/behavior changes during hospitalization
Hx Oropharyngeal Carcinoma s/p Chemotherapy and Radiation
BRITTNY -resume CPAP at 15
DVT proph: Lovenox
Code Status: DNR/DNI
DW daughter about clinical findings, investigative plan and the results of the tests and the treatment plans.
Total time spent on today's encounter was 52 minutes which included time spent in counseling the patient/family regarding diagnosis and treatment plan as listed above, goals of care, and symptom management. Case was discussed with nursing staff,
specialists, and care coordinators/case management. All labs and imaging personally reviewed by me. Remainder the time spent in detailed review of previous records, lab data, imaging, and other medical provider documentation.
Anticipated Discharge: > 48 hours
Subjective/Interval History
-
Date of Service: September 22, 2024
Pt with hx of dementia
Alert and oriented to self and person but not to the place. Unclear why he came to the hospital.
Patient's daughter at bedside-mentions about the dementia. Probably short-term memory but long-term memory is okay. Is been at a facility for the last 4 years.
Daughter has noticed yesterday with some worsening of confusion in the night but cleared up to this morning. There might be an element of confusion more with unfamiliar surroundings.
Objective Data
-
Labs:
Laboratory Results
09/22/24 09/22/24 09/22/24
02:38 04:43 11:01
WBC 12.4 H
Hgb 12.7 L
Hct 37.7 L
Plt Count 495 H
Sodium 127 L 126 L 124 L
Potassium 5.2 H 5.2 H 5.1
Chloride 99 101 99
Carbon Dioxide 20 L 18 L 21 L
BUN 36 H 35 H 32 H
Creatinine 0.9 0.9 0.8
Glucose 149 H 160 H 221 H
Calcium 7.9 L 7.9 L 7.9 L
Vital Signs:
Vital Signs
Temp Pulse Resp BP Pulse Ox
97.8 F 94 15 131/59 98
09/22/24 11:16 09/22/24 11:01 09/22/24 11:01 09/22/24 11:01 09/22/24 11:16
I&O
09/21/24 09/22/24 09/23/24
06:59 06:59 06:59
Intake Total 250 / 250
Output Total 300 / 300
Balance 250 / 250 -300 / -300
Review of Systems
-
Constitutional: Denies Fever or Chills
EENT: Reports Sore Throat
Respiratory: Reports Trouble Breathing (? at rest ? with exertion); Denies Cough
Cardiac: Denies Chest Pain
Abdomen/GI: Denies Abdominal Pain, Nausea or Vomiting
Musculoskeletal: Reports Edema (LE and also the hand -new for him)
Neuro: Denies Dizzy
Physical Exam
-
General: Comfortable
Respiratory: Non Labored Respirations; Negative Wheezes, Crackles or Accessory Resp Muscle Use
Cardiac: Regular Rhythm and S1/S2; Negative JVD
GI: Soft and Nontender
Musculoskeletal: Edema, Right Lower Extrem and Edema, Left Lower Extrem
Neuro: Awake, Alert and Oriented
Psych: Calm and Confused; Negative Agitated
Data Reviewed
-
Labs: Labs Reviewed by me
[2024-09-22] MEDS: SAMSCA 15 MG PO (15:58)
[2024-09-22 16:02] LABS: Glucose - Point of Care 158 mg/dl (70-99)
[2024-09-22] MEDS: ROCEPHIN 1000 MG IV (17:11)
[2024-09-22] MEDS: STERILE WATER FOR INJECTION 10 ML IV (17:11)
[2024-09-22] MEDS: LOVENOX 40 MG SC (17:11)
[2024-09-22] MEDS: GLUCOPHAGE 1000 MG PO (20:36)
[2024-09-22] MEDS: DESYREL 50 MG PO (21:49)
[2024-09-22] MEDS: LIPITOR 10 MG PO (21:49)
[2024-09-22] MEDS: TRICOR 145 MG PO (21:49)
[2024-09-22] MEDS: REMERON 15 MG PO (21:49)
[2024-09-22 22:35] LABS: Glucose - Point of Care 182 mg/dl (70-99)
[2024-09-23] VITALS (7 sets, daily range): BP systolic 112–170; BP diastolic 61–94; PULSE 88
--- NOTE | 2024-09-23 05:52 | DOWNTIME ---
There was a haku Client Accounting/Finance Tutor Downtime on 09/23/2024 from 0100 to 09/23/2024 at 0350. Downtime documentation of patient's care, including medication administrations, has been reconciled in the electronic record per guidelines. Refer to the
patient's paper chart under the miscellaneous tab to see printed paper medication records and downtime forms.
[2024-09-23 06:38] LABS: Hematocrit 37.9 % (39.0-52.0); Hemoglobin 13.1 g/dL (13.0-18.0); Mean Corp Hgb Conc. 34.6 g/dL (33.0-37.0); Mean Corpuscular Hgb 27.8 pg (27.0-31.0); Mean Corpuscular Volume 80.3 fL (80.0-94.0); Mean Platelet Volume 9.2 fL (7.4-10.4); Platelet Count 531 10^3/uL (130-400); Red Blood Cell Count 4.72 10^6/uL (4.70-6.10); Red Cell Dist. Width 14.8 % (11.5-14.5); White Blood Cell Count 8.3 10^3/uL (4.8-10.8)
[2024-09-23 06:59] LABS: Blood Urea Nitrogen 29 mg/dl (9-20); Calcium 8.5 mg/dl (8.4-10.2); Carbon Dioxide 23 mmol/L (22-30); Chloride 103 mmol/L (98-107); Estimated Creatinine Clearance 81 ml/min; Glucose 186 mg/dl (70-99); Potassium 5.4 mmol/L (3.5-5.1); Sodium 131 mmol/L (135-145); eGFR > 60.00
[2024-09-23 08:27] LABS: Glucose - Point of Care 175 mg/dl (70-99)
[2024-09-23] MEDS: TRILEPTAL 300 MG PO (10:05)
[2024-09-23] MEDS: MIRALAX 17 GRAMS PO (10:05)
[2024-09-23] MEDS: FEOSOL 325 MG PO (10:05)
[2024-09-23] MEDS: FLOMAX 0.4 MG PO (10:05)
[2024-09-23] MEDS: CYMBALTA DELAYED RELEASE 60 MG PO (10:05)
[2024-09-23] MEDS: GLUCOPHAGE 1000 MG PO ×2 (10:06→21:21)
[2024-09-23] MEDS: ZYLOPRIM 300 MG PO (10:06)
[2024-09-23] MEDS: NAMENDA 5 MG PO ×2 (10:06→19:42)
[2024-09-23] MEDS: COLACE 100 MG PO ×2 (10:06→21:21)
[2024-09-23] MEDS: GLUCOTROL 10 MG PO (10:07)
[2024-09-23] MEDS: NOVOLOG FLEXPEN-MODERATE RESISTANCE 1 UNITS SC (10:07)
--- NOTE | 2024-09-23 12:06 | W.PN.NEPH.PH ---
Today's Communication / Plan
-
add lasix,
bladder scan, check U PCR
Assessment/Plan
-
Impression:
Symptomatic hyponatremia (weakness/mental status changes)
Bilateral lower extremity edema
Hypoalbuminemia
Hypertension
Diabetes
Dementia/bipolar
Prostate cancer
Oropharyngeal cancer status postchemotherapy and radiation
Plan:
Hyponatremia is likely a function unfortunately of underlying malignancy with SIADH
-Maintain fluid restriction
-Would titrate back Cymbalta as this is likely also potentiating hyponatremia
sodium better post [facility] 09/22
-Thyroid function test reviewed, cortisol was ok
-Echocardiogram without abnormalities and proBNP only 123, check U PCR
-Profound edema could be due to underlying hypoalbuminemia, urinalysis without albuminuria and therefore not due to underlying nephrotic process
-No evidence of venous obstruction by lower extremity duplex
mild hyperkalemia-check PVR, start lasix for both for k, sodium and edema
labs in am
-
-
Date of Service: September 23, 2024
CC / HPI / ROS
-
Chief Complaint:
hypoantremia
History of Present Illness:
sodium better at 131 post samuta
k high 5.4
BP increasing trend
no fever
Review of Systems:
no cp or sob
sleeping during visit
Labs
-
Labs:
WBC 8.3 10^3/uL (4.8-10.8) 09/23/24 05:29
RBC 4.72 10^6/uL (4.70-6.10) 09/23/24 05:29
Hgb 13.1 g/dL (13.0-18.0) 09/23/24 05:29
Hct 37.9 % (39.0-52.0) L 09/23/24 05:29
Plt Count 531 10^3/uL (130-400) H 09/23/24 05:29
Sodium 131 mmol/L (135-145) L 09/23/24 05:29
Potassium 5.4 mmol/L (3.5-5.1) H 09/23/24 05:29
Chloride 103 mmol/L (98-107) 09/23/24 05:29
Carbon Dioxide 23 mmol/L (22-30) 09/23/24 05:29
BUN 29 mg/dl (9-20) H 09/23/24 05:29
Creatinine 0.9 mg/dL (0.7-1.3) 09/23/24 05:29
eGFR > 60.00 09/23/24 05:29
Glucose 186 mg/dl (70-99) H 09/23/24 05:29
Calcium 8.5 mg/dl (8.4-10.2) 09/23/24 05:29
Gke-H-Thilozkbfmw Pept 123 pg/ml 09/21/24 15:17
Albumin 2.5 g/dl (3.5-5.0) L 09/21/24 15:17
Physical Exam
-
Vital Signs:
Vital Signs
Temp Pulse Resp BP Pulse Ox
97.7 F 91 16 170/85 97
09/23/24 07:45 09/23/24 07:45 09/23/24 07:45 09/23/24 07:45 09/23/24 07:45
Cardiovascular:: Regular rate and rhythm
Respiratory:: Bilateral: CTA
Lung Excursion:: Normal
Abdomen:: Nontender and Soft
Extremity Edema:: +3: Bilateral:
Waggoner Catheter: No
--- NOTE | 2024-09-23 12:55 | W.PN.HOSP.TC ---
Today's Communication/Plan
-
Start nifedipine for blood pressure management
Continue ceftriaxone and follow urine culture data
Follow sodium closely. Continue with fluid restriction.
Markell stocking
PT OT eval
DC planning
Assessment / Plan
Assessment / Plan
Symptomatic Hyponatremia suspected SIADH; Pt with hx of cancer.
-s/p 250mL of 3% NaCl and Samsca
-Repeat sodium improved at 131
-Continue fluid restriction
- Pt on multiple mood/psych meds - will ask to return to his psychiatrist for consideration of coming off duloxetine
Abnormal UA with enterococcus in urine - possible true UTI .Improved WBC on abx.Pt with hx of prostate Ca. Check for bladder scan and residuals. CW CTX. Await cx data.
Bilateral Lower Extremity Edema
- Lower Extremity Doppler neg for DVT
- Echo with normal EF and no significant valvular dysfunction
- BNP 123
- Urine albumin neg.
- Today LE edema is better suggesting possible dependent edema
- Will place on markell stockings
Essential Hypertension
-Hold lisinopril due to hyperkalemia
- Will start on Nifedipine for BP management
Diabetes Mellitus, Type II
- HbA1c 9.4
-Patient maintained on Trulicity as outpatient
-Continue Basaglar
-Monitor sugars and continue coverage insulin
Prostate Cancer
-Patient recently started Lupron and is scheduled to start radiation next month
Bipolar Disorder
-Patient maintained on cariprazine as outpatient
-Continue duloxetine
- No new changes per daughter at bedside
Dementia
-Continue memantine
-Monitor for mood/behavior changes during hospitalization
Hx Oropharyngeal Carcinoma s/p Chemotherapy and Radiation
BRITTNY -resume CPAP at 15
DVT proph: Lovenox
Code Status: DNR/DNI
Anticipated Discharge: Within 24 hours
Subjective/Interval History
-
Date of Service: September 23, 2024
Pleasantly confused. Voicing no specific complaints.
Objective Data
-
Labs:
Laboratory Results
09/23/24
05:29
WBC 8.3
Hgb 13.1
Hct 37.9 L
Plt Count 531 H
Sodium 131 L
Potassium 5.4 H
Chloride 103
Carbon Dioxide 23
BUN 29 H
Creatinine 0.9
Glucose 186 H
Calcium 8.5
Vital Signs:
Vital Signs
Temp Pulse Resp BP Pulse Ox
97.7 F 91 16 170/85 97
09/23/24 07:45 09/23/24 07:45 09/23/24 07:45 09/23/24 07:45 09/23/24 07:45
I&O
09/22/24 09/23/24 09/24/24
06:59 06:59 06:59
Intake Total 250 / 250 960 / 960
Output Total 3320 / 3320
Balance 250 / 250 -2360 / -2360
Review of Systems
-
Unable to obtain full review of systems at this time due to: Dementia
Physical Exam
-
General: Comfortable
Respiratory: Clear to Auscultation and Non Labored Respirations; Negative Accessory Resp Muscle Use
Cardiac: Regular Rhythm and S1/S2
GI: Soft, Nontender, Nondistended and Normal Bowel Sounds
Musculoskeletal: Edema, Right Lower Extrem and Edema, Left Lower Extrem (Improved BL LE edema compared to yesterday)
Neuro: Awake, Alert and Oriented (self)
Psych: Calm and Confused
Data Reviewed
-
Labs: Labs Reviewed by me
[2024-09-23 13:36] LABS: Glucose - Point of Care 100 mg/dl (70-99)
[2024-09-23] MEDS: NOVOLOG FLEXPEN-MODERATE RESISTANCE SC ×2 (13:43→17:20)
[2024-09-23] MEDS: PROCARDIA XL (EXTENDED RELEASE) 30 MG PO (14:16)
[2024-09-23] MEDS: LASIX 20 MG PO (14:19)
--- NOTE | 2024-09-23 14:37 | CM ---
Addendum entered by Natalee Vásquez 09/23/24 15:00:
Chart reviewed and dc noted less than 24 hours
SNF has ability to readmit tomorrow
IMM completed bedside with pt- copy provided
VM left for dtr explaining role
Transport forms placed on chart in the case pt needs transport arranged on dc
Aleja/oncall admissions tomorrow for [facility] [phone]
Discharge Disposition- return to [facility] via family vs BLS
Phone- [phone] Fax- [phone]
Original Note:
CM spoke with SALES RELATIONSHIP MANAGER at [facility]
Pt is LTC resident with a bed-hold
Pt is AxO 2x and no behavioral issues noted
Pt is ambulatory with a WW and 1 person assist
He is a [id number] assist for personal care tasks
Pt is continent of B/B and able to make his needs known
Pt utilizes a cpap
Pt is under care of psych team who rounds at [facility]
PCP- Ramesh Faith
Rx- [facility]
Discharge Disposition- return to [facility] LT
--- NOTE | 2024-09-23 16:39 | CM ---
Addendum entered by Sandra Barreto 09/23/24 16:42:
signs and displays salesperson for patient is daughter Ariela Manrique [phone]
Original Note:
service operations manager received a call that family would not be able to transport patient, therefore patient will need BLS transport as paitnt has a diagnosis of dementia and should qualify for BLS.
Plan; To [facility] by ambulance.
[2024-09-23] MEDS: STERILE WATER FOR INJECTION 10 ML IV (16:56)
[2024-09-23] MEDS: ROCEPHIN 1000 MG IV (16:57)
[2024-09-23] MEDS: LOVENOX 40 MG SC (17:06)
[2024-09-23 17:20] LABS: Glucose - Point of Care 110 mg/dl (70-99)
[2024-09-23 21:02] LABS: Glucose - Point of Care 107 mg/dl (70-99)
[2024-09-23] MEDS: DESYREL 50 MG PO (21:22)
[2024-09-23] MEDS: REMERON 15 MG PO (21:22)
[2024-09-23] MEDS: LANTUS 0.15 UNITS SC (21:22)
[2024-09-23] MEDS: TRICOR 145 MG PO (21:23)
[2024-09-23] MEDS: LIPITOR 10 MG PO (21:23)
[2024-09-24 03:00] VITALS: BP 111/52
[2024-09-24 06:00] VITALS: BMI 34.8
[2024-09-24 07:30] VITALS: BP 130/69
[2024-09-24 08:09] LABS: Glucose - Point of Care 146 mg/dl (70-99)
[2024-09-24] MEDS: NOVOLOG FLEXPEN-MODERATE RESISTANCE SC ×3 (08:10→16:59)
[2024-09-24 08:17] LABS: Blood Urea Nitrogen 26 mg/dl (9-20); Calcium 8.4 mg/dl (8.4-10.2); Carbon Dioxide 26 mmol/L (22-30); Chloride 99 mmol/L (98-107); Estimated Creatinine Clearance 79 ml/min; Glucose 141 mg/dl (70-99); Potassium 5.1 mmol/L (3.5-5.1); Sodium 131 mmol/L (135-145); eGFR > 60.00
--- NOTE | 2024-09-24 08:31 | W.PN.HOSP.TC ---
Today's Communication/Plan
-
Discharge today
Assessment / Plan
Assessment / Plan
Physical Exam
General: Comfortable
Respiratory: Clear to Auscultation and Non Labored Respirations; Negative Accessory Resp Muscle Use
Cardiac: Regular Rhythm and S1/S2
GI: Soft, Nontender, Nondistended and Normal Bowel Sounds
Musculoskeletal: Edema, Right Lower Extrem and Edema, Left Lower Extrem (Improved BL LE edema compared to yesterday). No CVA tenderness on either the left or right side.
Neuro: Awake, Alert and Oriented (self)
Psych: Calm and Confused
Assessment/Plan
Symptomatic Hyponatremia suspected SIADH; Pt with hx of cancer.
-s/p 250mL of 3% NaCl and Samsca
-Repeat sodium improved at 131
-Continue fluid restriction
-Pt on multiple mood/psych meds - will ask to return to his psychiatrist for consideration of coming off duloxetine
-Per nephrology on 09/24/24: continue Lasix, check BMP by September 28, 2024
Abnormal UA with enterococcus in urine - possible true UTI .Improved WBC on abx. Pt with hx of prostate Ca.
RBCs in Urine
-Discussed case with patient's nurse who reported that patient is not retaining any urine
-I have asked clinical pharmacist Lucy Givens for her recommendations on antibiotics: Amoxicillin 500mg PO TID for 7 days, per patient's daughter Ariela patient is unreliable when communicating whether her has any symptoms and Ariela stated she would
prefer him to get antibiotics
-Follow-up with urology outpatient for hematuria
Bilateral Lower Extremity Edema
- Lower Extremity Doppler neg for DVT
- Echo with normal EF and no significant valvular dysfunction
- BNP 123
- Urine albumin neg.
- LE edema is better suggesting possible dependent edema
- Will place on markell stockings
Essential Hypertension
-Hold lisinopril due to hyperkalemia
-Continue Nifedipine for blood pressure management
Diabetes Mellitus, Type II
- HbA1c 9.4
-Patient maintained on Trulicity as outpatient
-Continue Basaglar
-Monitor sugars and continue coverage insulin
Prostate Cancer
-Patient recently started Lupron and is scheduled to start radiation next month
Bipolar Disorder
-Patient maintained on cariprazine as outpatient
-Continue duloxetine
- No new changes per daughter at bedside
Dementia
-Continue memantine
-Monitor for mood/behavior changes during hospitalization
History Oropharyngeal Carcinoma s/p Chemotherapy and Radiation
BRITTNY -resume CPAP at 15
DVT proph: Lovenox
Code Status: DNR/DNI
I spoke over the phone with patient's daughter Ariela today; all questions and concerns were answered to satisfaction.
More than 30 minutes spent in discharge including
Final examination of the patient
Summarizing hospital stay
Instructions for continuing care to all relevant caregivers
Preparation of discharge records, prescriptions, and referral forms
Total time spent (in minutes): 45
Anticipated Discharge: Today
Subjective/Interval History
-
Date of Service: September 24, 2024
Patient was seen and examined. He denied any symptoms or complaints.
Objective Data
-
Labs:
Laboratory Results
09/24/24
07:11
Sodium 131 L
Potassium 5.1
Chloride 99
Carbon Dioxide 26
BUN 26 H
Creatinine 0.9
Glucose 141 H
Calcium 8.4
Vital Signs:
Vital Signs
Temp Pulse Resp BP Pulse Ox
97.5 F 85 18 130/69 95
09/24/24 07:30 09/24/24 07:30 09/24/24 07:30 09/24/24 07:30 09/24/24 07:30
I&O
09/23/24 09/24/24 09/25/24
06:59 06:59 06:59
Intake Total 960 / 960 1979 / 1979
Output Total 3320 / 3320 3250 / 3250
Balance -2360 / -2360 -1270 / -1270
[2024-09-24 08:52] LABS: Protein/creatinine Ratio 0.2; Urine Protein 13 mg/dl
[2024-09-24] MEDS: COLACE 100 MG PO (09:14)
[2024-09-24] MEDS: ZYLOPRIM 300 MG PO (09:14)
[2024-09-24] MEDS: TRILEPTAL 300 MG PO (09:14)
[2024-09-24] MEDS: NAMENDA 5 MG PO (09:14)
[2024-09-24] MEDS: GLUCOPHAGE 1000 MG PO (09:14)
[2024-09-24] MEDS: PROCARDIA XL (EXTENDED RELEASE) 30 MG PO (09:15)
[2024-09-24] MEDS: FLOMAX 0.4 MG PO (09:15)
[2024-09-24] MEDS: CYMBALTA DELAYED RELEASE 60 MG PO (09:15)
[2024-09-24] MEDS: MIRALAX 17 GRAMS PO (09:15)
[2024-09-24] MEDS: GLUCOTROL 10 MG PO (09:15)
[2024-09-24] MEDS: FEOSOL 325 MG PO (09:15)
[2024-09-24] MEDS: AMOXIL 500 MG PO ×2 (09:15→15:07)
[2024-09-24] MEDS: LASIX 20 MG PO (09:15)
[2024-09-24 11:30] VITALS: BP 127/73
--- NOTE | 2024-09-24 12:46 | CM ---
Addendum entered by Kristina Olmos 09/24/24 13:32:
Transport arranged - family updated
Aleja at [facility] made aware
Original Note:
Pt medically ready for discharge
Spoke with Aleja - [facility] for [facility] - can accept today
Transport to be arranged
Plan - return to the [facility]
R - [phone]
- [phone]
[2024-09-24 12:52] LABS: Glucose - Point of Care 93 mg/dl (70-99)
--- NOTE | 2024-09-24 13:28 | CM ---
CM called patient's daughter, Chiquis, to update her that transport had notified CM that they will be coming within the hour. CM informed her that Abelino would be notified as well. She was agreeable to plan.
--- NOTE | 2024-09-24 14:12 | W.PN.NEPH.PH ---
Addendum entered and electronically signed by Tash Locke MD 09/24/24 14:20:
If d/c today
BMP on Saturday and f/u with PCP
Original Note:
Today's Communication / Plan
-
follow labs
Assessment/Plan
-
Impression:
Symptomatic hyponatremia (weakness/mental status changes)
Bilateral lower extremity edema
Hypoalbuminemia
Hypertension
Diabetes
Dementia/bipolar
Prostate cancer
Oropharyngeal cancer status postchemotherapy and radiation
Plan:
Hyponatremia is likely a function unfortunately of underlying malignancy with SIADH
-Maintain fluid restriction 48ounces/day
-Would titrate back Cymbalta as this is likely also potentiating hyponatremia
sodium stable s/p Samsca 09/22
cont lasix 20mg daily
-Thyroid function test reviewed, cortisol was ok
-Echocardiogram without abnormalities and proBNP only 123, check U PCR only 0.2gm/gm of cr
-Profound edema could be due to underlying hypoalbuminemia, urinalysis without albuminuria and therefore not due to underlying nephrotic process
-No evidence of venous obstruction by lower extremity duplex
mild hyperkalemia-improved with lasix
BP stable post procardia -started by Primary 09/23
f/u labs
d/c plan
-
-
Date of Service: September 24, 2024
CC / HPI / ROS
-
Chief Complaint:
hypoantremia
History of Present Illness:
sodium stable at 131 post samsca
k better at 5.1
BP improving
no fever
Review of Systems:
no cp or sob
sleeping during visit
Labs
-
Labs:
WBC 8.3 10^3/uL (4.8-10.8) 09/23/24 05:29
RBC 4.72 10^6/uL (4.70-6.10) 09/23/24 05:29
Hgb 13.1 g/dL (13.0-18.0) 09/23/24 05:29
Hct 37.9 % (39.0-52.0) L 09/23/24 05:29
Plt Count 531 10^3/uL (130-400) H 09/23/24 05:29
Sodium 131 mmol/L (135-145) L 09/24/24 07:11
Potassium 5.1 mmol/L (3.5-5.1) 09/24/24 07:11
Chloride 99 mmol/L (98-107) 09/24/24 07:11
Carbon Dioxide 26 mmol/L (22-30) 09/24/24 07:11
BUN 26 mg/dl (9-20) H 09/24/24 07:11
Creatinine 0.9 mg/dL (0.7-1.3) 09/24/24 07:11
eGFR > 60.00 09/24/24 07:11
Glucose 141 mg/dl (70-99) H 09/24/24 07:11
Calcium 8.4 mg/dl (8.4-10.2) 09/24/24 07:11
Lfq-U-Kuvkbknjqyp Pept 123 pg/ml 09/21/24 15:17
Albumin 2.5 g/dl (3.5-5.0) L 09/21/24 15:17
Physical Exam
-
Vital Signs:
Vital Signs
Temp Pulse Resp BP Pulse Ox
98.4 F 90 16 127/73 97
09/24/24 11:30 09/24/24 11:30 09/24/24 11:30 09/24/24 11:30 09/24/24 11:30
Cardiovascular:: Regular rate and rhythm
Respiratory:: Bilateral: CTA
Lung Excursion:: Normal
Abdomen:: Nontender and Soft
Extremity Edema:: +2: Bilateral:
Waggoner Catheter: No
--- NOTE | 2024-09-24 14:54 | W.DCSUMMARY ---
Discharge Summary
Discharge Data
Date of Admission: 09/21/24
Date of Discharge: 09/24/24
Total time spent discharging patient (in min): 45
-
Pending Results: No
Hospital Course
79 y/o male past medical history of Oropharyngeal Cancer, recently diagnosed Prostate Cancer, Diabetes Mellitus, Hypertension, Bipolar Disorder and Dementia who presented with weakness. Patient was admitted with symptomatic hyponatremia and
nephrology was consulted. Patient received 3% saline intravenous fluids. Given patient's lower extremity edema, and echocardiogram was performed, which showed, as per state director's report:
'CONCLUSIONS
Limited echocardiogram.
Grossly normal LV/RV systolic function. No obvious LV wall motion
abnormalities.
No or MS.
Doppler assessment of the valves was not adequate to comment on valvular
regurgitant lesions.
No pericardial effusion.
No prior study available for comparison.'
Lower extremity was thought to be due to low albumin. Lower extremity duplex ultrasound showed no deep venous thrombosis. Patient's hyponatremia was thought to be due to underlying malignancy with SIADH. Patient was placed on Lasix. Lisinopril was
held due to hyperkalemia, and Nifedipine was added for better blood pressure control. Patient was started on antibiotics for a possible urinary tract infection. Patient would need his Duloxetine decreased or possibly even weaned off outpatient given
his hyponatremia.
Discharge Plan
-
Patient Disposition: Long Term/SNF
Discharge Diagnosis/Procedures: Symptomatic Hyponatremia suspected SIADH with history of cancer
Concern for Urinary Tract Infection with history of Prostate Cancer
Hematuria
Bilateral Lower Extremity Edema, possibly due to hypoalbuminemia
Essential Hypertension
Diabetes Mellitus, Type II
Prostate Cancer
Bipolar Disorder
Dementia
History Oropharyngeal Carcinoma status post Chemotherapy and Radiation
Obstructive Sleep Apnea
Condition: Fair
Diet: 2 Gram Sodium, Diabetic, Carb Controlled and Restrict fluids to 48 oz
Activity: As tolerated
Driving Restrictions: No driving
Blood Work: CBC, BMP and Magnesium latest by Saturday, September 28, 2024
Other Services: PT and OT
Activity Restrictions/Additional Instructions:
Patient needs to have their PCP and/or psychiatrist try to reduce Cymbalta medication given patient's hyponatremia.
Follow-up closely with your oncologist and review your discharge medication list with their office.
Referrals:
Edmar Velazquez Jr., MD [Active] - in two to three weeks (Hematuria on hospital urinalysis)
UNKNOWN - PT DOES,NOT KNOW [Family Provider] -
Additional Discharge Medication Instructions: Amoxicillin, Furosemide, and Nifedipine are new medications.
Fleet Enema, Lisinopril, and Ondansetron have been stopped -- these can be re-evaluated outpatient for any possible restart.
Prescriptions:
New
amoxicillin 500 mg Capsule
500 mg PO Q8 7 Days Qty: 21 0RF
furosemide 20 mg Tablet
20 mg PO DAILY Qty: 30 0RF
nifedipine 30 mg Tablet Extended Release
30 mg PO DAILY Qty: 30 0RF
Continued
nystatin 100,000 unit/mL suspension
5 ml PO QID
acetaminophen 325 mg Tablet
650 mg PO Q6HPRN PRN (Reason: mild pain/fever)
magnesium hydroxide [Milk of Magnesia] 400 mg/5 mL Suspension
30 ml PO DAILYPRN PRN (Reason: if no bm x 2 days)
tamsulosin 0.4 mg capsule
0.4 mg PO HS
bisacodyl [Dulcolax (bisacodyl)] 10 mg Suppository
10 mg OR DAILYPRN PRN (Reason: if no bm by 2nd day & if no bm aftr mom)
docusate sodium 100 mg Capsule
100 mg PO BID
memantine 5 mg tablet
5 mg PO BID
duloxetine 20 mg capsule,delayed release(DR/EC)
60 mg PO DAILY
insulin glargine [Basaglar KwikPen U-100 Insulin] 100 unit/mL (3 mL) insulin pen
15 unit SC HS
Trulicity 0.75 mg/0.5 mL pen injector
0.75 mg SC TU
Vraylar 1.5 mg capsule
1.5 mg PO DAILY
trazodone 50 mg Tablet
50 mg PO HS
polyethylene glycol 3350 [Miralax] 17 gram Powder In Packet
17 g PO DAILY
glipizide 10 mg Tablet
10 mg PO DAILY
sennosides-docusate sodium [Senna Plus] 8.6-50 mg Tablet
2 tab-cap PO DAILYPRN PRN (Reason: if no bm aftr dulcolax)
simvastatin [Zocor] 10 mg Tablet
10 mg PO HS
cyanocobalamin (vitamin B-12) 1,000 mcg Tablet
1,000 mcg PO DAILY
oxcarbazepine 300 mg Tablet
300 mg PO DAILY
ferrous sulfate 325 mg (65 mg iron) Tablet
325 mg PO DAILY
metformin 1,000 mg Tablet
1,000 mg PO BID
clotrimazole-betamethasone 1-0.05 % Cream
1 applic TOPICAL BID
allopurinol 300 mg Tablet
300 mg PO DAILY
mirtazapine 15 mg Tablet
15 mg PO HS
fenofibrate nanocrystallized 145 mg Tablet
145 mg PO HS
cholecalciferol (vitamin D3) [Vitamin D3] 50 mcg (2,000 unit) Tablet
50 mcg PO DAILY
icosapent ethyl [Vascepa] 1 gram Capsule
2 g PO BID
melatonin 10 mg Tablet Extended Release
10 mg PO HSPRN PRN (Reason: sleep)
Discontinued
lisinopril 20 mg tablet
20 mg PO DAILY
Fleet Enema 19-7 gram/118 mL Enema
118 ml OR DAILYPRN PRN (Reason: if no bm x 3 days)
ondansetron HCl [Zofran] 8 mg Tablet
8 mg PO Q8HPRN PRN (Reason: nausea)
Discharge Orders:
Discharge Patient (As Directed); Ordered 09/24/24
Ordered By: Lito Young
Discharge Date and Time
Discharge Date/Time: 09/24/24 18:56
Print Language: [id number]
[2024-09-24 15:45] VITALS: BP 117/58
[2024-09-24 16:58] LABS: Glucose - Point of Care 92 mg/dl (70-99)
[2024-09-24] MEDS: LOVENOX SC (17:23)
== END 2024-09-24 18:56 | DRG 645 ==
LOC: 3 WEST ACU 22:03
PROVIDERS: Internal Medicine; Nurse Practitioner Family; Physician Assistant Medical; Registered Nurse; ADMITTING PHYSICIAN Internal Medicine; ATTENDING PHYSICIAN Hospitalist; CONSULT PHYSICIAN Specialist; EMERGENCY PHYSICIAN Student in an Organized Health Care Education/Training Program
DX: E22.2 Syndrome of inappropriate secretion of antidiuretic hormone (principal); Z87.891 Personal history of nicotine dependence; I10 Essential (primary) hypertension; E11.65 Type 2 diabetes mellitus with hyperglycemia; C61 Malignant neoplasm of prostate; F31.9 Bipolar disorder, unspecified; Z66 Do not resuscitate
CPT/HCPCS: 51798; 71046; 80048; 80053; 81003; 81015; 82533; 82570; 82962; 83036; 83605; 83735; 83880; 83930; 83935; 84156; 84300; 84439; 84443; 85025; 85027; 87070; 87077; 87086; 87186; 87502; 87811; 87880; 93306; 93970; 94660; 96360; 97162; 97166; 99285

== ENCOUNTER → 2024-10-19 10:49 | Outpatient (REF) | payer MEDICARE, OTHER, SELFPAY | LOC: RAD 10:49 | PROVIDERS: ATTENDING PHYSICIAN Radiology Radiation Oncology; FAMILY PHYSICIAN Internal Medicine | DX: C01 Malignant neoplasm of base of tongue (principal) | CPT/HCPCS: 70491; 71250; Q9967 ==